=== PATIENT | male | born 1995 | race Caucasian/White ===

== ENCOUNTER 2019-01-12 11:51 | Emergency (ER) | payer OTHER ==
[~2019-01-12] VITALS: Ht 193 cm; Wt 65.8 kg
--- NOTE | 2019-01-12 12:00 | NUR ---
Patient came in due to right hand laceration. On room air, breathing evenly and unlabored. Ambulatory with steady gait. kept comfortable, will continue to monitor accordingly.
[2019-01-12] MEDS ORDERED: TDAP [DIPH/PERTUSSIS/TET] 0.5 ML VIAL IM ONE ×2 (12:30→12:49)
[2019-01-12] MEDS ORDERED: LIDOCAINE HCL/PF 1% 30 ML VIAL TP ONE (12:30)
--- NOTE | 2019-01-12 12:42 | NUR ---
[facility]
[2019-01-12] MEDS ORDERED: LIDOCAINE HCL/PF 1% 30 ML SDV ONE (12:51)
[2019-01-12 13:10] VITALS: BP 115/78
--- NOTE | 2019-01-12 13:11 | NUR ---
Patient discharged to home in stable condition. Written and verbal after care instructions given. Patient verbalizes understanding of instruction.
== END 2019-01-12 13:11 | disposition home or self-care (01) ==
LOC: ER 11:53
DX: S61.411A Laceration without foreign body of right hand, initial encounter (principal); W22.8XXA Striking against or struck by other objects, initial encounter; Y93.89 Activity, other specified; Y92.89 Other specified places as the place of occurrence of the external cause; Y99.8 Other external cause status
CPT/HCPCS: 12001; 73130; 90471; 90715; 99283; A6403; J3490

== ENCOUNTER 2019-01-25 10:52 | Emergency (ER) | payer OTHER ==
[~2019-01-25] VITALS: Ht 190.5 cm; Wt 68.9 kg
[2019-01-25 11:01] VITALS: BP 128/68
== END 2019-01-25 11:16 | disposition home or self-care (01) ==
LOC: ER 10:52
DX: S61.411D Laceration without foreign body of right hand, subsequent encounter (principal); Z60.2 Problems related to living alone; X58.XXXD Exposure to other specified factors, subsequent encounter